=== PATIENT | female | born 1985 | race Caucasian/White ===

== ENCOUNTER 2022-11-17 08:28 | Day surgery (SDC) | payer BC ==
[2022-11-11 15:10] VITALS: BP 122/83
[~2022-11-17] VITALS: Ht 175.3 cm; Wt 75.0 kg
--- NOTE | ~2022-11-17 | OR ---
[facility] [address], [place] [address] Draft DATE OF OPERATION: 11/17/2022 SURGEON: Jorge Hernandez MD PREOPERATIVE DIAGNOSIS: Chronic tonsillitis, tonsil lithiasis. POSTOPERATIVE DIAGNOSIS: Chronic tonsillitis, tonsil lithiasis. PROCEDURE: Tonsillectomy. 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 PREOPERATIVE HISTORY: Santiago is a 37-year-old young lady with chronic tonsillitis, tonsil lithiasis, chronic sore throats, multiple infections, taken to the operating room for the above-mentioned procedures. OPERATIVE PROCEDURE AND FINDINGS: After informed consent, the patient was taken to the operating room, placed in the supine position where general orotracheal anesthesia was induced. The patient and procedure were verified. The patient was repositioned McIvor mouth gag placed into suspension. Headlight exam of the pharynx showed relatively small tonsils very cryptic, particularly left-sided, multiple tonsil stones filling the tonsil crypts. The left tonsil was grasped with a tenaculum, retracted medially and removed from its fossa with mucosal sparing incisions with Coblation. The field was dry after the procedure. Same procedure on the right tonsil. Tonsils were sent to pathology. The mouth gag was released for several minutes. Reinspection showed no bleeding points. The pharynx was suctioned clear of blood secretions. The patient was awakened, extubated, transported to recovery room in good condition. No complications. BLOOD LOSS: Minimal. SPECIMEN: To pathology. PATIENT NAME: SANTIAGO CABRERA OPERATIVE REPORT DATE OF : 85 REPORT #: [id number] PHYSICIAN: JORGE HERNANDEZ MD PCP: GARRET GARCIA NP REPORT IS CONFIDENTIAL AND NOT TO BE RELEASED WITHOUT AUTHORIZATION [address] [place], [place] [address] Draft DRAINS: None Jorge Hernandez MD GC/MITCH /[id number] Copies: ~ PATIENT NAME: SANTIAGO CABRERA OPERATIVE REPORT DATE OF : 85 REPORT #: [id number] PHYSICIAN: JORGE HERNANDEZ MD PCP: GARRET GARCIA NP REPORT IS CONFIDENTIAL AND NOT TO BE RELEASED WITHOUT AUTHORIZATION
[~2022-11-17 08:28] MED LIST: CLINDAMYCIN HC150 MG PO; PRENATAL TABLE1 EACH PO; PRILOSEC OTC20 MG PO; TRAZODONE HCL50 MG PO; ZANTAC150 MG PO; ZYPREXA2.5 MG PO
[2022-11-17 08:40] VITALS: BP 127/87
[2022-11-17] MEDS ORDERED: XANAX0.25 MG PO (08:43)
--- NOTE | 2022-11-17 11:32 | NUR ---
11/17/22 1131 Sheets,[place] 1108 PT ARRIVED TO PACU ON 10L VIA MASK, PT MOVING OFF AND ON, PT EYES REMAIN CLOSED. PT UNABLE TO FOLLOW COMMANDS. VSS. 1109 O2 DECREASED TO 6L VIA MASK. 1113 PT WAKES AND DENIES PAIN AND NAUSEA. O2 MASK REMOVED. PT REORIENTED TO PACU AND PLAN OF CARE DISCUSSED. PT TEARFUL AND EDUCATION GIVEN. 1118 MD AT BEDSIDE TALKING TO MD. 1120 PT SIPPING WATER PER REQUEST, HOB INCREASED. 1131 PT REPORTS SMALL AMOUNT OF PAIN 1-2/10 AND TOLERBALE.
[2022-11-17 11:41] VITALS: BP 127/86
--- NOTE | 2022-11-17 11:45 | NUR ---
1135: PT BACK TO DS RM 5 FROM PACU VIA STRETCHER WITH EYES CLOSED. PT AROUSES WITH VERBAL STIMULUS, HAS TEARS ROLLING FROM EYES AND STATES "I AM JUST REALLY SAD." PT EDUCATED ABOUT ANESTHESIA EFFECTS. SPOUSE AT BEDSIDE ON ARRIVAL. ICED WATER PROVIDED AND DC CRITERIA EXPLAINED, CALL LIGHT WITHIN REACH.
[2022-11-17 12:36] VITALS: BP 118/83
--- NOTE | 2022-11-17 12:38 | NUR ---
PATIENT IS RESTING IN BED WITH SPOUSE AT BEDSIDE. PATIENT STATES THEY HAVE A METALIC TASTE IN THEIR MOUTH BUT NO VISIBLE SIGNS OF BLEEDING. PATIENT HAS CALL LIGHT WITHIN REACH AND HAS NO FURTHER NEEDS AT THIS TIME.
[2022-11-17 13:45] VITALS: BP 107/71
--- NOTE | 2022-11-17 13:57 | NUR ---
1330: PT USES CALL LIGHT TO NOTIFY RN OF URGE TO VOID. PT SITS AT SIDE OF BED PRIOR TO STANDING, DENIES DIZZINESS OR NAUSEA WITH POSITION CHANGE. PT AMBULATES WITH STEADY GAIT AND RN ASSIST TO BATHROOM, VOIDS QS WITH NO PROBLEMS. PT BACK TO DS RM 5, VSS AND PT DRESSES SELF WITH SPOUSE AT BEDSIDE. ENCOURAGED TO OPEN CURTAIN WHEN FINISHED.
--- NOTE | 2022-11-17 14:32 | NUR ---
1400: DC INSTRUCTIONS PRESENTED VERBALLY AND WRITTEN TO PT AND SPOUSE, NO QUESTIONS ASKED AT THIS TIME. PT AWARE OF NEED TO TAKE PAIN RX TO PHARMACY TO HAVE FILLED. PT ABLE TO TRANSFER SELF FROM STRETCHER TO , DC FROM DS RM 5 TO SPOUSE IN PERSONAL CAR AT FRONT ENTRANCE TO HOME.
--- NOTE | 2022-11-19 23:06 | PATH ---
[facility] [address] [place], [place] [address] Signed SPECIMEN(S): A LEFT TONSIL SPECIMEN(S): B RIGHT TONSIL SPECIMEN SOURCE: A. LEFT TONSIL B. RIGHT TONSIL CLINICAL HISTORY: Tonsilloliths, chronic tonsillitis. FINAL PATHOLOGIC DIAGNOSIS: A. Tonsil, left, tonsillectomy: - Acute and chronic tonsillitis with actinomyces. B. Tonsil, right, tonsillectomy: - Acute and chronic tonsillitis with actinomyces. COMMENT: Sections from the tonsils show follicular lymphoid hyperplasia and plasma cells beneath the squamous epithelium. Fibrin and neutrophils are seen in tonsillar crypts, and actinomyces colonies are present. There is no evidence of a neoplastic process. TWK:[facility]:C2NR MICROSCOPIC EXAMINATION: Histologic sections of all submitted blocks are examined by light microscopy. These findings, together with the gross examination, support the pathologic diagnosis. GROSS DESCRIPTION: A. The specimen, labeled and designated "Cabrera, A, left tonsil," is received in formalin and consists of a 2.3 x 1.5 x 1.4 cm palatine tonsil. The mucosal surface is pink and smooth with areas of folds. The tonsil is inked. Sectioning reveals a pink homogeneous cut surface with the usual crypt-like architecture. Household Appliance Installer sections are submitted in (A1). B. The specimen, labeled and designated "Cabrera, A, right tonsil," is received in formalin and consists of a 2.9 x 1.9 x 1.6 cm palatine tonsil. The mucosal surface is pink and smooth with areas of folds. Sectioning reveals a pink homogeneous cut surface with the usual crypt-like architecture. Household Appliance Installer sections are submitted in (A1). FB (under the direct supervision of a pathologist) PATIENT NAME: LACIE CABRERA PATHOLOGY DATE OF : 85 REPORT #: [id number] PHYSICIAN: JOSE PAYNE PCP: GARRET GARCIA NP REPORT IS CONFIDENTIAL AND NOT TO BE RELEASED WITHOUT AUTHORIZATION [facility] [address] [place], [place] [address] Signed The Gross Description was prepared using a voice recognition system. The report was reviewed for accuracy; however, sound-alike word errors, addition and/or deletions may occur. If there is any question about this report, please contact Client Services. PERFORMING LABORATORY: The technical component was performed by [facility], [address] [place] [id number] (CLIA# [id number]). The professional interpretation was performed by [facility], [facility], [address] [place] [address] (CLIA#: [id number]). Diagnostician: Imtiaz Harrison MD Pathologist Electronically Signed 11/19/2022 Copies: ~ PATIENT NAME: LACIE CABRERA PATHOLOGY DATE OF : 85 REPORT #: [id number] PHYSICIAN: JOSE PAYNE PCP: GARRET GARCIA NP REPORT IS CONFIDENTIAL AND NOT TO BE RELEASED WITHOUT AUTHORIZATION
== END 2022-11-17 14:10 | disposition home or self-care (01) ==
LOC: OPS 08:28 → DS 08:28 → OPS 08:30
PROVIDERS: ATTEND Otolaryngology
DX: J35.8 Other chronic diseases of tonsils and adenoids (principal); J35.01 Chronic tonsillitis; Z88.2 Allergy status to sulfonamides; Z79.899 Other long term (current) drug therapy
CPT/HCPCS: 00170; J0131; J1100; J2250; J2405; J2704; J3010; J7121